=== PATIENT | female | born 1960 | race African-American/Black ===

== ENCOUNTER 2022-04-22 06:29 | Day surgery (SDC) | payer OTHER ==
[~2022-04-22] VITALS: Ht 170.2 cm; Wt 93.0 kg
[2022-04-22] MEDS ORDERED: fentaNYL citrate 0.05 MG/ML VIAL ONE (07:33)
[2022-04-22] MEDS ORDERED: LIDOCAINE 2% 100 MG/5 ML UJET TP ONE (07:33)
[2022-04-22] MEDS ORDERED: fentaNYL citrate 0.05 MG/ML VIAL IVP ONE (11:05)
[2022-04-22] MEDS ORDERED: EPINEPHrine PFS 0.1 MG/ML SYR IVP ONE (11:37)
[2022-04-22] MEDS ORDERED: GLUCAGON 1 MG VIAL ONE (11:37)
== END 2022-04-22 11:25 | disposition home or self-care (01) ==
LOC: MMU 06:29 → MDS 06:29
PROVIDERS: ATTEND Internal Medicine Gastroenterology
DX: Z09 Encounter for follow-up examination after completed treatment for conditions other than malignant neoplasm (principal); D12.2 Benign neoplasm of ascending colon; Z86.010 Personal history of colon polyps; K57.30 Diverticulosis of large intestine without perforation or abscess without bleeding; K64.9 Unspecified hemorrhoids; I10 Essential (primary) hypertension; Z80.1 Family history of malignant neoplasm of trachea, bronchus and lung; Z79.899 Other long term (current) drug therapy; Z80.3 Family history of malignant neoplasm of breast; Z80.0 Family history of malignant neoplasm of digestive organs; Z20.822 Contact with and (suspected) exposure to COVID-19
CPT/HCPCS: 45381; 45385; 87426; 88305; J0171; J1610; J3010